=== PATIENT | female | born 1985 | race Caucasian/White ===

== ENCOUNTER → 2016-11-26 | Day surgery (SDC) | payer OTHER ==
[2016-11-26 07:58] LABS: HCT 35.1 % (37.0-47.0); MCH 30.9 pg (25.0-31.0); MCHC 34.2 g/dL (32.0-36.0); MCV 90.5 fL (78.0-100.0); RBC 3.88 M/uL (4.20-5.40); RDW 13.2 % (11.5-14.0); WBC 5.8 K/uL (4.0-10.5)
[2016-11-26 08:12] LABS: ALBUMIN 4.4 g/dL (3.5-5.0); BILIRUBIN - TOTAL 1.3 mg/dL (0.1-1.0); CREATININE 0.7 mg/dL (0.5-1.0); POTASSIUM 3.8 mmol/L (3.5-5.1); TOTAL PROTEIN 7.4 g/dL (6.4-8.3)
== END | disposition home or self-care (01) ==
LOC: FAS 07:10
PROVIDERS: Surgery
DX: K80.10 Calculus of gallbladder with chronic cholecystitis without obstruction (principal); K42.9 Umbilical hernia without obstruction or gangrene; K21.9 Gastro-esophageal reflux disease without esophagitis; F41.9 Anxiety disorder, unspecified; Z88.1 Allergy status to other antibiotic agents; Z98.51 Tubal ligation status; Z82.61 Family history of arthritis; Z82.5 Family history of asthma and other chronic lower respiratory diseases; Z83.49 Family history of other endocrine, nutritional and metabolic diseases; Z83.3 Family history of diabetes mellitus; Z82.49 Family history of ischemic heart disease and other diseases of the circulatory system; Z81.1 Family history of alcohol abuse and dependence; Z80.9 Family history of malignant neoplasm, unspecified; Z79.2 Long term (current) use of antibiotics; Z79.899 Other long term (current) drug therapy; Z98.890 Other specified postprocedural states
CPT/HCPCS: 36415; 74300; 80053; 84703; 88304; C1781; J0690; J1100; J1170; J2405; J2704; J2710; J3010; Q9962

== ENCOUNTER 2021-05-05 07:54 | Emergency (ER) | payer OTHER ==
[2021-05-05 09:20] LABS: BASOPHIL 0.7 % (0-2); HCT 34.7 % (37.0-47.0); HGB 11.4 g/dl (12.5-16.0); LYMPHOCYTE 8.8 % (15-48); MCH 32.3 pg (25.0-31.0); MCHC 32.9 g/dL (32.0-36.0); MCV 98.3 fL (78.0-100.0); MONOCYTE 4.4 % (0-12); MPV 10.1 fL (6.0-9.5); NEUTROPHIL 84.8 % (41-80); NRBC 0; PLT 335 K/uL (150-400); RBC 3.53 M/uL (4.20-5.40); RDW 12.7 % (11.5-14.0); WBC 11.5 K/uL (4.0-10.5)
[2021-05-05 09:22] LABS: BILIRUBIN NEGATIVE (NEGATIVE); BLOOD 1+ Ery/uL (NEGATIVE); CLARITY CLEAR (CLEAR); COLOR YELLOW (YELLOW); GLUCOSE (U) NORMAL (NORMAL); LEUKOCYTES 1+ Leu/uL (NEGATIVE); NITRITE NEGATIVE (NEGATIVE); PROTEIN NEGATIVE (NEGATIVE); UROBILINOGEN 0.2 mg/dL (0.2-1.0)
[2021-05-05 09:32] LABS: BACTERIA 2+
[2021-05-05 09:47] LABS: ALBUMIN 3.8 g/dL (3.4-5.0); BILIRUBIN - TOTAL 1.7 mg/dL (0.2-1.0); BUN/CREAT RATIO (CALC) 11.3 RATIO; CREATININE 0.62 mg/dL (0.51-0.95); GLOBULIN (CALCULATION) 3.6 g/dL; POTASSIUM 3.5 mmol/L (3.5-5.1); TOTAL PROTEIN 7.4 g/dL (6.4-8.2)
== END 2021-05-05 10:24 | disposition home or self-care (01) ==
LOC: FER 07:54
PROVIDERS: Emergency Medicine
DX: R55 Syncope and collapse (principal); Z88.1 Allergy status to other antibiotic agents; Z20.822 Contact with and (suspected) exposure to COVID-19
CPT/HCPCS: 36415; 71045; 80053; 81001; 83735; 84443; 84484; 85025; 87076; 87088; 87186; 93005